=== PATIENT | female | born 1990 | race Caucasian/White ===

== ENCOUNTER → 2023-05-08 21:01 | Outpatient (ROUT) | payer OTHER, SELFPAY ==
[2023-05-08 21:07] LABS: Add Manual Diff / Slide Review NO; Basophils Absolute Auto 0 /uL (0-100); Basophils Percent Auto 0.5 % (0-2); Eosinophils Absolute Auto 100 /uL (0-450); Hematocrit 36.8 % (36-46); Hemoglobin 12.4 g/dL (12.0-16.0); Lymphocytes Absolute Auto 1900 /uL (1100-4500); Lymphocytes Percent Auto 20.5 % (25-40); Mean Corpuscular HGB Conc 33.7 % (30-36); Mean Corpuscular Hemoglobin 30.4 PG (26-34); Mean Corpuscular Volume 90.1 fL (80-100); Monocytes Absolute Auto 400 /uL (0-900); Monocytes Percent Auto 4.6 % (3-14); Neutrophils Absolute Auto 6800 /uL (1500-7000); Neutrophils Percent Auto 73.4 % (50-75); Platelet Count 223 X10^3/uL (150-400); Red Blood Cell Count 4.09 X10^6/uL (4.0-5.2); Red Cell Distribution Width 13.6 % (11.6-14.8); White Blood Cell Count 9.3 X10^3/uL (4.5-11.0)
[2023-05-08 21:58] LABS: Thyroid Stimulating Hormone 0.274 uIU/mL (0.47-4.68)
== END ==
PROVIDERS: Visit Provider Advanced Practice Midwife
DX: O99.019 Anemia complicating pregnancy, unspecified trimester (principal); E05.80 Other thyrotoxicosis without thyrotoxic crisis or storm
CPT/HCPCS: 84443; 85025

== ENCOUNTER 2023-07-25 03:55 | Inpatient (IN) | payer OTHER, SELFPAY ==
--- NOTE | 2023-07-25 04:38 | PM.OBHP.1 ---
OB HPI Date/Time Date of admission: 07/25/23 Date Patient Seen: 07/25/23 Time Patient Seen: 04:30 History of Present Condition Chief complaint: Labor : 2 Para: 1 Estimated Date of Delivery: 08/06/23 Estimated Gestational Age (weeks): 38w2d Narrative: JOSHUA GORDON is a 33 year old female with term IUP at 38w2d by LMP and confirmed by 9 week ultrasound. She called [facility] reporting ROM at 0020 today, clear fluid, and contractions that were 5 min apart by 0320 when they decided to come to the hospital. Joshua had care with CNMs and was comanaged by [facility] due to history of 32w5d . As such, she had serial cervical length ultrasounds (all normal). Her was also complicated by anxiety (on 25 mg PO sertraline), occasional episodes of white-coat hypertension with normal BPs in CNM office at at home and normal preeclampsia panel, and mild hyperthyroidism in . She is here this morning well supported by her , Joaquim. They are excited to meet their baby girl, Osmani. History of Present care: good care, initiated at week # (6), number of visits (11) and pounds weight gain (35) Dating criteria: LMP confirmed by 1st trimester US Ultrasounds: normal 1st trimester US and normal mid trimester US Obstetrical complications: none Preadmission Labs Blood type: A (+) positive -: Antibody screen: negative, Cystic fibrosis screen: unknown, GBS status: negative, HBsAG: negative, HIV: negative, HSV 1: unknown, HSV 2: unknown and RPR/VDLR: negative -: Chlamydia screen: not detected and Gonorrhea screen: not detected -: Rubella: immune and Varicella: immune HCT: 36.8 HCAB: negative PAP: Normal (11/2022) 1 hr GTT: 74 Prior (ies) History: 32w5d PTB of viable male fetus with testicular torsion, resolved surgically at 1 day of life at [facility] Evaluation Evaluation Baseline heart rate: 135 Contraction Frequency (minutes): 5 Comments: FHR and vital signs not completed in a timely manner due to multiple attempts to get IV in prior to doing FHR and maternal VS. Per RN, HR in 80s/90s was audibly maternal; pulse ox at 0452 confirms this. Cervical exam not performed due to PROM, labor. [facility] Medical History (Updated 07/25/23 @ 06:19 by Latricia Phillip CNM, JANUSZ) White coat syndrome without diagnosis of hypertension Hyperthyroidism affecting in first trimester Anxiety delivery, delivered Family History Other Cancer Diabetes mellitus Hypertension Social History (Updated 07/25/23 @ 05:07 by Latricia Phillip CNM, JANUSZ) marital status: number of children: 1 household members: spouse and children lives independently: Yes caregiver/support person: No housing: house pets and animals: Yes education level: college occupational status: employed do you feel safe at home: Yes Smoking Status: Never smoker alcohol intake: former substance use type: does not use Meds Home Medications and Allergies Allergies Allergy/AdvReac Type Severity Reaction Status Date / Time Sulfa (Sulfonamide Allergy Intermediate Hives Verified 07/25/23 04:47 Antibiotics) Review of Systems Review of Systems Narrative: All negative except as mentioned in HPI. OB Exam Vital signs Blood Pressure: 144/79 (only one BP done after admission, while pushing; repeat 120/64 after precipitous delivery) Pulse Rate: 79 Respiratory Rate: 18 Temperature: 35.6 F Resp Effort & Inspection: normal respiratory effort and able to speak in complete sentences Cardio Rate: regular rate Rhythm: regular rhythm Objective Labs 07/25/23 05:00 Assessment and Plan Assessment and Plan Assessment and Plan narrative: at 38w2d PROM x 4 hours Active labor GBS negative Rh positive Hyperthyroid in (mild) Admit to L&D Thyroid labs on admit with usual labs IV for active management of third stage labor Usual labor care Anticipate
[2023-07-25 05:14] LABS: Add Manual Diff / Slide Review NO; Basophils Absolute Auto 0 /uL (0-100); Basophils Percent Auto 0.4 % (0-2); Eosinophils Absolute Auto 100 /uL (0-450); Eosinophils Percent Auto 0.6 % (2-4); Hematocrit 39.1 % (36-46); Hemoglobin 13.3 g/dL (12.0-16.0); Lymphocytes Absolute Auto 2400 /uL (1100-4500); Lymphocytes Percent Auto 19.9 % (25-40); Mean Corpuscular HGB Conc 34.1 % (30-36); Mean Corpuscular Hemoglobin 29.8 PG (26-34); Mean Corpuscular Volume 87.4 fL (80-100); Monocytes Absolute Auto 500 /uL (0-900); Monocytes Percent Auto 3.8 % (3-14); Neutrophils Absolute Auto 8900 /uL (1500-7000); Neutrophils Percent Auto 75.3 % (50-75); Platelet Count 211 X10^3/uL (150-400); Red Blood Cell Count 4.48 X10^6/uL (4.0-5.2); Red Cell Distribution Width 14.1 % (11.6-14.8); White Blood Cell Count 11.8 X10^3/uL (4.5-11.0)
[2023-07-25 05:46] VITALS: BP 144/79; PULSE 79; RESP 18; TEMP 2; TEMP 35.6
--- NOTE | 2023-07-25 05:53 | P.PCNOB_ITS ---
Events: Other (History of pre-term ) Labor & Delivery Delivery date: 07/25/23 Intrapartal Events: Precipitous Labor < 3 hours Cervical ripening method: none Delivery monitor: none Route of delivery: L&D Laceration Description: Periurethral - 1st Degree and Perineal - 1st Degree Delivery repair: other (none) Quantitative Blood Loss: 90 Anesthesia Type: None Complications: none Narrative: Labor progressed quickly as nurses worked to complete admission procedures and set up delivery table. Yenny felt the spontaneous urge to push at 0505 and pushed effectively for a short 2nd stage. FHR was difficult to trace throughout labor admission. Delivery of vertex at 0515, restitution to NISSA, and NSVB of baby at 0516, shoulders delivered easily with spontaneous maternal efforts. Baby was placed on maternal abdomen when Yenny was ready to receive her. Apgars 8/9. They remained skin to skin while cord was cut and placenta was delivered. Placenta delivered spontaneously with maternal efforts and appeared to be intact. 3 vessel cord clamped and cut by Joaquim (FOB) at 10 minutes of life after cord pulsing had stopped. Pitocin given IV prophylactically after cord clamped and cut. Cord blood collected for blood typing. Perineum inspected and found to have hemostatic 1st degree laceration, not repaired. Shallow periurethral lacerations noted bilaterally. Blood loss measured and estimated loss is 90 mL. Mom and baby left stable and is being initiated. Yenny and Joaquim are thrilled to meet their daughter.. Latricia Phillip HOIST CYLINDER LOADER, CNM, IBCLC Baby 1: gender: Female Presentation: vertex Position: Right Occiput Anterior Placenta delivery description: Spontaneous Cord Vessel Description: 3 Vessels score (1 min): 8 score (5 min): 9 weight: 2.876 kg Plan for aftercare: Routine care
[2023-07-25] MEDS: IBUPROFEN 600 MG TABLET PO ×4 (06:29→23:58)
[2023-07-25 07:31] VITALS: BP 144/79; PULSE 79; RESP 18; TEMP 2; TEMP 35.6
[2023-07-25 07:32] VITALS: BP 120/64
[2023-07-25] MEDS: DERMOPLAST SPRAY 20% 60 ML 1 SPRAY TOP (12:08)
[2023-07-25] MEDS: ACETAMINOPHEN 325 MG TABLET 650 MG PO ×2 (12:08→23:58)
[2023-07-25] MEDS: SERTRALINE 50 MG TABLET 25 MG PO (20:18)
[2023-07-26] MEDS: ACETAMINOPHEN 325 MG TABLET 650 MG PO (06:08)
[2023-07-26] MEDS: IBUPROFEN 600 MG TABLET PO (06:08)
[2023-07-26] MEDS: LANOLIN OINT 7 GM 1 APPLIC TOP (08:43)
--- NOTE | 2023-07-26 11:11 | PM.OBDS.1 ---
Discharge Providers Provider Date of admission: 07/25/23 03:55 Discharge Date: 07/26/23 Consults: 07/25/23 04:36 Consult to Anesthesiology Urgent Comment: Consulting Provider: Anesthesiologist Reason for consultation: Epidural Has provider been notified: No 07/26/23 05:52 Consult to Upholstery Technician Routine Comment: Discharge provider: Latricia Phillip CNM, ARNP Summary Hospital Course Date Patient Seen: 07/26/23 Time Patient Seen: 09:00 Hospital Course: PROM at home, contractions began approx 2 hours after that. Arrived to L&D approx 4 hours after PROM, had a baby 1 hour after admission. Uncomplicated, precipitous . QBL 90 mL, normal PP course. . [place] 1: Gender: Female Disposition of : home Discharge Diagnosis (1) (normal spontaneous vaginal delivery): Status: Acute (2) Anxiety: Status: Acute (3) Supervision of with history of pre-term labor, third trimester: Status: Acute (4) First degree perineal laceration during delivery: Status: Acute Time Spent with Patient Time attestation: Total time spent providing and/or coordinating discharge services: Objective Labs 07/25/23 05:00 Exam Vital Signs (past 8 hours): BP 114/60 HR 69 bpm RR 17/min Temp 97.6 F SPO2 98% Other: Fundus firm at U, midline. Lochia scant Perineum intact with minimal edema Discharge Plan Discharge Plan Patient Disposition: Home Discharge orders & Medications Prescriptions: No Action No Known Home Medications Follow up/Referrals: Latricia Phillip CNM, ARNP [Advanced Activities Therapist] - 3-5 Days (Appointments scheduled for follow up at 2 days, 7 days, 2 weeks and 6 weeks.) Diet/Activity/Treatments Diet: Diet as Tolerated and Regular Diet comment: Increase fiber and fluid to aid with stool, healing Activity: low ayala for 2 weeks Cold/Heat Therapy: as needed Skin/Wound/Dressing Care Skin care: usual care Report to your healthcare provider any signs of infection, such as:: chills, fever, increased pain, unusual drainage and unusual redness Visit Report/Discharge Packet Stand Alone Forms: Patient Portal/API, Stroke Signs & Symptoms
[2023-07-26 12:00] VITALS: BP 114/60; PULSE 69; RESP 17; TEMP 36.4
== END 2023-07-26 12:35 | disposition home or self-care (01) | DRG 807 ==
PROVIDERS: Admitting Provider Advanced Practice Midwife; Referring Provider Advanced Practice Midwife; Visit Provider Advanced Practice Midwife
DX: O42.02 Full-term premature rupture of membranes, onset of labor within 24 hours of rupture (principal); Z37.0 Single live birth; O99.284 Endocrine, nutritional and metabolic diseases complicating childbirth; E05.90 Thyrotoxicosis, unspecified without thyrotoxic crisis or storm; Z3A.38 38 weeks gestation of pregnancy; O62.3 Precipitate labor; O99.344 Other mental disorders complicating childbirth; F41.9 Anxiety disorder, unspecified; O70.0 First degree perineal laceration during delivery; O71.82 Other specified trauma to perineum and vulva; Z67.10 Type A blood, Rh positive
CPT/HCPCS: 36415; 59050; 85025; 86850; 86900; 86901; G0379